=== PATIENT | female | born 1955 | race Two or more races ===

== ENCOUNTER 2021-05-29 11:15 | Inpatient (IN) | payer OTHER ==
[~2021-05-29] VITALS: Ht 157.5 cm; Wt 53.1 kg
[2021-05-29] MEDS ORDERED: METRONIDAZOLE500 MG PO (15:12)
[2021-05-29] MEDS ORDERED: VYTORIN 10-201 EACH PO (15:13)
[2021-05-29] MEDS ORDERED: DIOVAN40 MG PO (15:13)
[2021-05-29] MEDS ORDERED: GLIMEPIRIDE4 MG (15:13)
[2021-06-03] MEDS ORDERED: METFORMIN HCL500 M4 (15:48)
== END 2021-06-06 09:28 | disposition home or self-care (01) | DRG 330 ==
LOC: O/R 06-03 06:28 → SURH 06-03 07:00 → SURG 06-03 22:19
PROVIDERS: ADMIT Colon & Rectal Surgery; ATTEND Colon & Rectal Surgery
PROC: 0DTF4ZZ Resection of Right Large Intestine, Percutaneous Endoscopic Approach (ICD-10-PCS; principal; 2021-06-03 07:00)
DX: K57.32 Diverticulitis of large intestine without perforation or abscess without bleeding (principal); K92.1 Melena; N99.4 Postprocedural pelvic peritoneal adhesions; I11.9 Hypertensive heart disease without heart failure; E11.9 Type 2 diabetes mellitus without complications; Z79.4 Long term (current) use of insulin; D72.828 Other elevated white blood cell count